=== PATIENT | female | born 1935 | race Caucasian/White ===

== ENCOUNTER 2016-08-09 18:05 | Observation (INO) | payer OTHER, MEDICARE ==
[~2016-08-09] VITALS: Ht 156.2 cm; Wt 69.4 kg
[2016-08-09] MEDS ORDERED: DILTIAZEM 24HR180 MG PO (18:10)
[2016-08-09] MEDS ORDERED: SIMVASTATIN40 M1 PO (18:10)
[2016-08-09] MEDS ORDERED: ASPIRIN EC81 M1 PO (18:10)
--- NOTE | 2016-08-09 18:12 | NUR ---
PT BIBA FROM HOME WITH N/V THAT STARTED THIS AM. PT STATES THAT SHE WAS AT A [employer]NER [employer] LAST NIGHT, BUT OTHERWISE NO NEW FOODS OR ANYTHING SHE WAS EXPOSED TO. PT DENIES ANY ABD PAIN WITH PALPATION, BS+X4 QUADRANTS. PT DENIES ANY CP/SOB. RA SAT 90%, PLACED ON 2L O2 VIA NC, SATS UP TO 96% AT THIS TIME. PT NOTED WITH TEMP OF 99.1 IN ROOM.
--- NOTE | 2016-08-09 18:21 | NUR ---
DR BASS TO [facility].
--- NOTE | 2016-08-09 18:57 | ED AMS/SEIZURE/WEAK/DIZZY ---
See Addendum History of Present Illness General Chief Complaint: General Adult Stated Complaint: WEAKNESS, NAUSEA, VOMITING Source: patient Exam Limitations: no limitations Vital Signs & Intake/Output Vital Signs & Intake/Output Vital Signs Date Time Temp Pulse Resp B/P Pulse O2 O2 Flow FiO2 Ox Delivery Rate 08/10 0926 98.6 78 18 132/70 98 Room Air 08/10 0559 98.5 86 18 136/70 98 08/10 0144 98.1 81 18 118/59 94 Room Air 08/09 2229 100.4 92 22 122/67 97 Room Air 08/099 100.4 08/09 2021 100.4 94 20 125/63 97 Nasal 2.0L Cannula 08/09 1811 96 Nasal 2.0L Cannula 08/09 1809 99.1 102 18 129/69 96 Nasal 2.0L Cannula ED Intake and Output 08/10 0000 08/09 1200 Intake Total 2000 Output Total 225 Balance 1775 Intake, IV 1999 Output, Urine 225 Allergies Coded Allergies: NO KNOWN ALLERGIES (09/11/11) Triage Note: PT BIBA FROM HOME WITH N/V THAT STARTED THIS AM. PT STATES THAT SHE WAS AT A [employer] LAST NIGHT, BUT OTHERWISE NO NEW FOODS OR ANYTHING SHE WAS EXPOSED TO. PT DENIES ANY ABD PAIN WITH PALPATION, BS+X4 QUADRANTS. PT DENIES ANY CP/SOB. RA SAT 90%, PLACED ON 2L O2 VIA NC, SATS UP TO 96% AT THIS TIME. PT NOTED WITH TEMP OF 99.1 IN ROOM. Triage Nurses Notes Reviewed? yes HPI: Patient presents for evaluation of severe constant generalized weakness with nausea vomiting and low-grade headache that began this morning on awakening. The patient states she has felt warm and sweaty but does not think she has had an outright fever and denies any associated cold symptoms. She has had intermittent chills as well. She denies chest pain, dyspnea, abdominal pain, diarrhea, dysuria, rashes, ill contacts or recent travel. (SHELIA CRANDALL,HUMA Dailey) Reconcile Medications Aspirin (Ecotrin*) 81 MG TABLET.DR 1 TAB PO DAILY HEART HEALTH (Reported) Benzonatate (Tessalon Perle) 100 MG CAPSULE 1 CAP PO TID PRN COUGH Diltiazem HCl (Diltiazem 24HR ER) 180 MG CAP.ER.24H 1 CAP PO DAILY PT THINKS AFIB (Reported) Ondansetron (Zofran Odt) 4 MG TAB.RAPDIS 1 TAB PO Q6 PRN NAUSEA Simvastatin (Simvastatin*) 40 MG TABLET 1 TAB PO QPM CHOL (Reported) (DORETHA CRANDALL,JÚNIOR) Past History Travel History Traveled to [place] past 21 day No Medical History Any Pertinent Medical History? see below for history Cardiovascular: AFIB, hyperlipidemia Surgical History Surgical History: non-contributory Psychosocial History Tobacco Use: Never used Family History Hx Contributory? No (SHELIA CRANDALL,HUMA Dailey) Review of Systems Review of Systems Constitutional: Reports: see HPI. EENTM: Reports: no symptoms. Respiratory: Reports: no symptoms. Cardiovascular: Reports: no symptoms. GI: Reports: see HPI. Genitourinary: Reports: no symptoms. Musculoskeletal: Reports: no symptoms. Skin: Reports: no symptoms. Neurological/Psychological: Reports: headache. Hematologic/Endocrine: Reports: no symptoms. Immunologic/Allergic: Reports: no symptoms. All Other Systems: Reviewed and Negative (SHELIA CRANDALL,HUMA Dailey) Physical Exam Physical Exam General Appearance: SEE BELOW Comments: Gen.: Well-nourished, well-developed, no acute respiratory distress. Head: Normocephalic, atraumatic. Eyes: Normal inspection bilaterally Ears: Normal inspection bilaterally Nose: Normal inspection Throat/mouth : Moist mucosa Neck: Supple, full range of motion, no goiter Heart: Regular rate and rhythm, no murmurs rubs or gallops Lungs: Clear to auscultation bilaterally with normal air entry Chest: Nontender Back: Normal range of motion Abdomen: Soft, nontender, nondistended, normal bowel sounds Extremities: Normal range of motion grossly, equal radial pulses, no cyanosis clubbing or edema Neurologic: Cranial nerves grossly intact, speech is clear Skin: warm and dry Psychiatric: Calm, cooperative, no apparent delusions or hallucinations Core Measures ACS in differential dx? Yes CVA/TIA Diagnosis: No Severe Sepsis Present: No Septic Shock Present: No (SHELIA CRANDALL,HUMA Dailey) Progress Differential Diagnosis: dehydration, hypoglycemia, hypoxia, UTI/pyelo Plan of Care: Orders Procedure Date/time Status Clear Liquid Diet 08/10 B Active XRY-PORTABLE CHEST XRAY 08/10 0555 Active CBC WITHOUT DIFFERENTIAL 08/10 0549 Complete BASIC METABOLIC PANEL 08/[address] in observation 01/15 2151 Active Patient Data 08/09 2150 Active Code Status 08/09 2150 Active EKG 08/09 1855 Active URINALYSIS 08/09 1852 Complete COMPREHENSIVE METABOLIC PANEL 08/09 1850 Complete CBC WITHOUT DIFFERENTIAL 08/09 1850 Complete THYROID STIMULATING HORMONE 08/09 1849 Complete TROPONIN LEVEL 08/09 1849 Complete Intake & Output 08/09 1810 Active Current Medications Sig/Hermelindo Start time Last Medication Dose Stop Time Status Admin Acetaminophen 650 MG ONCE ONE 08/09 2129 CAN (Tylenol) 08/09 2130 Laboratory Tests 08/10/16 0555: Anion Gap 7, Estimated GFR > 60, BUN/Creatinine Ratio 14.3, Glucose 105 H, Calcium 8.1 L, CBC w Diff NO MAN DIFF REQ, RBC 4.10 L, MCV 94.0, MCH 31.4 H, RDW 14.0, MPV 6.8 L, Gran % 73.0, Lymphocytes % 14.8 L, Monocytes % 11.6 H, Eosinophils % 0.4, Basophils % 0.2, Absolute Granulocytes 3.8, Absolute Lymphocytes 0.8 L, Absolute Monocytes 0.6, Absolute Eosinophils 0, Absolute Basophils 0, PUBS MCHC 33.4 08/09/162151: Urine Color YEL, Urine Clarity CLDY H, Urine pH 6.5, Ur Specific Hines 1.015, Urine Protein TRACE H, Urine Ketones NEG, Urine Nitrite POS H, Urine Bilirubin NEG, Urine Urobilinogen 0.2, Ur Leukocyte Esterase MOD H, Ur Microscopic SEDIMENT EXAMINED, Urine RBC 3-5, Urine WBC 50-75 H, Ur Epithelial Cells PACKD H, Urine Hemoglobin TRACE-LYSED, Urine Glucose NEG 08/09/161855: Troponin I Cancelled 08/09/161852: TSH Cancelled 08/09/161849: Anion Gap 9, Estimated GFR > 60, BUN/Creatinine Ratio 25.0, Glucose 133 H, Calcium 8.9, Total Bilirubin 0.5, AST 21, ALT 22, Alkaline Phosphatase 56, Troponin I < 0.01, Total Protein 7.1, Albumin 4.0, Globulin 3.1, Albumin/ Globulin Ratio 1.3, TSH 0.427, CBC w Diff NO MAN DIFF REQ, RBC 4.29, MCV 91.5, MCH 30.6, RDW 14.1, MPV 7.0 L, Gran % 84.6 H, Lymphocytes % 6.3 L, Monocytes % 8.7, Eosinophils % 0.4, Basophils % 0 L, Absolute Granulocytes 5.3, Absolute Lymphocytes 0.4 L, Absolute Monocytes 0.5, Absolute Eosinophils 0, Absolute Basophils 0, PUBS MCHC 33.4 Comments: 08/09/2016 6:57:09 PM patient signed out to Dr. Correia. (SHELIA CRANDALL,HUMA Dailey) Initial ED EKG: NSR, nonspecific ST T wave chg Prior EKG: unchanged Hand-Off Endorsed To: JÚNIOR COYNE MD Endorsed Time: 722 Pending: Xray (RONY CRANDALL,DIMAS Martin) Diagnostic Imaging: Viewed by Me: Radiology Read. Discussed w/RAD: Radiology Read. CXR Impression: LOW LUNG VOLUMES, THICKENED AIRWAYS, NO FOCAL PNEUMONIA DJD LEFT SHOULDER JOINT (JÚNIOR COYNE MD) Departure Departure Condition: Stable Referrals: ALDA MONSALVE MD (PCP/Family) Departure Forms: Customer Survey General Discharge Information (SHELIA CRANDALL,HUMA Daiely) Departure Disposition: HOME OR SELF CARE Clinical Impression Primary Impression: Viral syndrome (RONY CRANDALL,DIMAS Martin) Departure Time of Disposition: 940 Additional Instructions: RETURN IF SYMPTOMS WORSEN OR FOR ANY CONCERNS. TAKE THE ZOFRAN AND TESSALON PEARLES DIRECTED. Prescriptions: Current Visit Scripts Ondansetron (Zofran Odt) 1 TAB PO Q6 PRN NAUSEA #20 TAB Benzonatate (Tessalon Perle) 1 CAP PO TID PRN COUGH #30 CAP Azithromycin (Zithromax) 1 DP PO AD #6 TAB 2 the first day followed by 1 for days 2-5 (JÚNIOR COYNE MD) ED Attending Observation Initial Observation Note: I have seen and personally examined LILIANA MALDONADO on 08/09/16 at 2152. I agree with the current emergency department documentation. The disposition (admission or discharge) is uncertain at this time, she needs a period of observation for the following reason(s): [Patient still does not feel well. There is slight nausea despite the Zofran. She still has the frontal throbbing headache which has been unrelieved with Toradol or fluid. Patient is receiving IV Tylenol. Patient will be gently hydrated overnight and reevaluated.] The ED Nurse caring for this patient has been personally informed as to what the patient is being observed for. Observation Re-Evaluation: I have reevaluated LILIANA MALDONADO on 08/10/16 at 0321. The physical findings that support the continued need to observe this patient include [patient is no longer nauseous and is. It feel better. Continue gentle hydration. Lungs are clear to auscultation. Cardiac exam is regular rate and rhythm with no murmurs. Abdomen is soft and nontender with normal bowel sounds. 08/10/2016 5:55:44 AM: Patient developed a nonproductive cough and a scratchy sore throat. Her nausea and her headache have resolved. Patient states that she now remembers how her nausea started yesterday. Patient states that she woke up yesterday morning with a nonproductive cough and a scratchy throat so she made herself tea with honey. Approximately 30 minutes after drinking the tea with honey she became nauseous and started vomiting. There have been no fevers. She has no chills. The cough is nonproductive. Patient denies any shortness of breath. On exam she has evidence of postnasal drip interference but there is no tonsillar swelling or exudates. Her lungs are clear to auscultation. We will obtain a chest x-ray.]. (RONY CRANDALL,DIMAS Martin) Observation Discharge: I have reevaluated LILIANA MALDONADO on 08/10/16 at 0915. The patient is: ([X]): Stable for discharge (): To be admitted to Nursing Floor (): To be placed in Observation on Nursing Floor (): For transfer to other facility The patient was being observed for [IV HYDRATION, IV ANTIEMETICS, MONITOR I/O] As a result of that observation, I have determined PATIENT TOLERATED CLEAR LIQUID DIET, STABLE FOR DISCHARGE HOME]. (DORETHA CRANDALL,JÚNIOR)
[2016-08-09 18:58] LABS: ABSOLUTE BASOPHIL COUNT 0 /CUMM (0.0-0.2); ABSOLUTE EOSINOPHIL COUNT 0 /CUMM (0.0-0.7); ABSOLUTE GRANULOCYTE CT 5.3 /CUMM (1.4-6.5); ABSOLUTE LYMPH COUNT 0.4 /CUMM (1.2-3.4); ABSOLUTE MONOCYTE COUNT 0.5 /CUMM (0.10-0.60); BASOPHIL % 0 % (0.0-2.0); EOSINOPHIL % 0.4 % (0-5); HEMATOCRIT 39.3 % (37-47); MEAN CORPUSCULAR HGB 30.6 PG (27.0-31.0); MEAN CORPUSCULAR HGB CONC 33.4 G/DL (33.0-37.0); MEAN CORPUSCULAR VOLUME 91.5 FL (81.0-99.0); PLATELET COUNT 239 /CUMM (130-400); RBC DISTRIBUTION WIDTH 14.1 % (11.5-14.5); RED BLOOD CELL CT 4.29 /CUMM (4.20-5.40); WHITE BLOOD CELL COUNT 6.3 /CUMM (4.8-10.8)
[2016-08-09 18:59] LABS: GRANULOCYTE % 84.6 % (42.2-75.2)
--- NOTE | 2016-08-09 20:53 | NUR ---
CO HEADACHE, ABLE TO YG PO NIDIA SALUD NO VOMITING, APPEARS FLUSHED AWAKE ALERT ORIENTED. REPORTS MINIMAL RELIEF FROM TORADOL
--- NOTE | 2016-08-09 21:31 | NUR ---
CONT OT NOT FEEL WELL DISCUSSED WITH DR. URIBE WILL DISCUSS PLAN OF CARE WITH FAMILY.
--- NOTE | 2016-08-09 21:52 | NUR ---
PT VOIDED SMALL AMOUNT ON BEDPAN. URINE SENT TO LAB
--- NOTE | 2016-08-09 21:53 | NUR ---
PARISA KNOX [phone] BENJI [phone]
--- NOTE | 2016-08-09 21:55 | NUR ---
FAMILY TAKING HOME MEDS
--- NOTE | 2016-08-09 22:49 | NUR ---
PT O2 REMOVED, APPEARS WEAK AND LISTLESS, PT HAS HAD NOT VOMITING IN ED BUT UNABLE TO YG LARGE AMTS OF LIQUIDS. SIPS OF NIDIA SALUD ONLY. NO VOMITING SINCE THIS REGISTERED RADIATION THERAPIST ARRIVAL TO SHIFT. O2 REMOVED SATS REMAIN 97-99 RA. PT ABLE WITH ASSISTANCE TO GET UP ONTO BEDPAN, BUT IS WEAK. IVF HUNG AT 125 CC/HR. REPORT TO JUMANA
--- NOTE | 2016-08-09 22:56 | NUR ---
TOTAL I/O FOR THIS SHIFT 1999 IN AND 225 OUT
--- NOTE | 2016-08-10 01:35 | NUR ---
PATIENT CONTINUES TO SLEEP AT THIS TIME W/ REGULAR RESPIRATIONS NOTED. LIGHTS DIMMED.
--- NOTE | 2016-08-10 01:44 | NUR ---
AWOKE PATIENT TO OBTAIN VS AND REASSESS. PATIENT REPORTS BEGAN W/ NASAL CONGESTION AND DRY COUGHING APPROX 1-2 HOURS AGO. DENIES ANY SOB, VSS, SPEECH CLEAR. DENIES ANY CURRENT NAUSEA OR VOMITTING. NO VOMITTING SINCE THIS RN ASSUMED CARE OF PATIENT. ALERT AND ORIENTED AT THIS TIME.
--- NOTE | 2016-08-10 03:54 | NUR ---
PATIENT CONTINUES TO SLEEP AT THIS TIME, REGULAR RESPIRATIONS NOTED.
--- NOTE | 2016-08-10 05:50 | NUR ---
MD URIBE AT BEDSIDE FOR REEVAL. AM LABS ORDERED.
--- NOTE | 2016-08-10 05:56 | NUR ---
PER MD URIBE, LUNGS CTA. WILL ORDER CHEST XRAY D/T C/O COUGHING.
--- NOTE | 2016-08-10 06:00 | NUR ---
LABS DRAWN AND SENT, LAV,SST,BLUE TOP
[2016-08-10 06:05] LABS: ABSOLUTE BASOPHIL COUNT 0 /CUMM (0.0-0.2); ABSOLUTE EOSINOPHIL COUNT 0 /CUMM (0.0-0.7); ABSOLUTE GRANULOCYTE CT 3.8 /CUMM (1.4-6.5); ABSOLUTE LYMPH COUNT 0.8 /CUMM (1.2-3.4); ABSOLUTE MONOCYTE COUNT 0.6 /CUMM (0.10-0.60); BASOPHIL % 0.2 % (0.0-2.0); EOSINOPHIL % 0.4 % (0-5); HEMATOCRIT 38.5 % (37-47); MEAN CORPUSCULAR HGB 31.4 PG (27.0-31.0); MEAN CORPUSCULAR HGB CONC 33.4 G/DL (33.0-37.0); MEAN PLATELET VOLUME 6.8 FL (7.4-10.4); PLATELET COUNT 229 /CUMM (130-400); WHITE BLOOD CELL COUNT 5.2 /CUMM (4.8-10.8)
--- NOTE | 2016-08-10 06:06 | NUR ---
AWAITING CHEST XRAY.
--- NOTE | 2016-08-10 07:01 | NUR ---
PORTABLE CHEST XRAY COMPLETED AT THIS TIME.
--- NOTE | 2016-08-10 08:00 | NUR ---
PT IS A+O x3. DENIES N/V/D, denies CP. no SOB. pt is aware of waiting for CXR results.
[2016-08-10] MEDS ORDERED: TESSALON PERLE100 M1 PO (09:14)
[2016-08-10] MEDS ORDERED: ZOFRAN ODT4 M1 PO (09:14)
--- NOTE | 2016-08-10 09:24 | NUR ---
DR COYNE AT BEDSIDE AND DISCUSSED PLAN OF CARE WITH PT. PTS DAUGHTER COMING TO BRING PT HOME
[2016-08-10 09:26] VITALS: BP 132/70
[2016-08-10] MEDS ORDERED: ZITHROMAX250 M2 PO (09:42)
--- NOTE | 2016-08-10 10:33 | RADIOLOGY REPORT ---
EXAMINATION: XR PORTABLE CHEST CLINICAL INFORMATION: Cough. Presumptive diagnosis of pneumonia. COMPARISON: Chest x-ray dated 07/01/2016. TECHNIQUE: Portable view of the chest was obtained. FINDINGS: The cardiomediastinal silhouette is borderline enlarged, likely related to the portable technique and low lung volumes. Mild tortuosity of the aorta is seen. Low lung volumes are noted with slight elevation of the right hemidiaphragm. Linear opacities are seen in the lung bases bilaterally, due to crowding of bronchovascular lung markings and linear subsegmental atelectasis. No focal dense consolidation, effusion or pneumothorax is seen. Mild central vascular congestion and thickening of the central airways is seen. Diffuse osteopenia is noted with prominent degenerative changes in the left shoulder joint. There may be loose bodies in the left shoulder joint, incompletely assessed on this exam. Mild S-shaped thoracic scoliosis and multilevel mild vertebral spondylosis is seen. IMPRESSION: 1. Low lung volumes with thickened central airways, bibasilar crowding of bronchovascular lung markings and subsegmental atelectasis. No focal pneumonia. 2. Moderate degenerative changes in the left shoulder joint with suggestion of loose bodies within the joint. This is incompletely assessed on this exam. If the patient is symptomatic, dedicated left shoulder films may be warranted.
== END 2016-08-10 10:17 ==
LOC: ERH 18:05 → ERHI 21:51
PROVIDERS: Emergency Medicine; ADMIT Emergency Medicine
DX: B34.9 Viral infection, unspecified (principal); I48.91 Unspecified atrial fibrillation; E78.5 Hyperlipidemia, unspecified; R51 Headache
CPT/HCPCS: 6090; 81001; 93005; 93010; 96361; 96374; 96375; G0378; J0131; J1885; J2405; J3490; J7040